=== PATIENT | female | born 1995 | race Two or more races ===

== ENCOUNTER 2018-04-15 06:32 | Inpatient (IN) | payer BC, OTHER ==
[2018-04-15 07:22] LABS: APPEARANCE,URINE CLEAR; BILIRUBIN,URINE NEGATIVE (NEGATIVE); COLOR,URINE STRAW; GLUCOSE, URINE NEGATIVE (NEGATIVE); KETONES,URINE NEGATIVE (NEGATIVE); LEUKOCYTE ESTERASE,URINE NEGATIVE (NEGATIVE); NITRITE,URINE NEGATIVE (NEGATIVE); PROTEIN,URINE NEGATIVE (NEGATIVE); URINE SPECIFIC GRAVITY 1.008; UROBILINOGEN,URINE NEGATIVE mg/dL (<2.0)
[2018-04-15 07:45] LABS: URINE AMPHETAMINES SCREEN NEGATIVE; URINE BARBITURATES SCREEN NEGATIVE; URINE BENZODIAZEPINES SCREEN NEGATIVE; URINE COCAINE SCREEN NEGATIVE; URINE MARIJUANA (THC) SCREEN NEGATIVE; URINE METHADONE SCREEN NEGATIVE; URINE PHENCYCLIDINE SCREEN NEGATIVE
[2018-04-15] MEDS ORDERED: DINOPROSTONE 10 MG VAGINAL INSERT.SR PV PRN (07:53)
[2018-04-15] MEDS ORDERED: OXYTOCIN/NORMAL SALINE 20 UNIT/1,000 ML RTUINJ IV PRN ×3 (07:53→20:11)
[2018-04-15] MEDS ORDERED: RINGERS SOLUTION,LACTATED 300 ML IV ONE (07:53)
--- NOTE | 2018-04-15 08:09 | Admission Physical ---
Datetime Report Generated by CPN: 04/15/2018 08:08 CURRENT ADMISSION Chief Complaint: Suspected Ruptured Membranes Indication for Induction: PROM Admit Impression : Term, Intrauterine ; Ruptured Membranes; Induction of Labor Admit Plan: Admit to Unit; Initiate Labor Induction Protocol ALLERGIES Medication Allergies: No Medication Allergies: No Known Allergies (04/15/2018) Latex: No Latex Allergies OBSTETRICAL HISTORY EDC: 04/30/2018 00:00 : 1 Para: 0 Term: 0 : 0 SAB: 0 IAB: 0 Ectopic: 0 Livin Cesareans: 0 VBACs: 0 Multiple Births: 0 Gestational Diabetes: No Rh Sensitization: No Incompetent Cervix: No CARLENE: No Infertility: No ART Treatment: No Uterine Anomaly: No IUGR: No Hx Previous C/S: No Macrosomia: No Hx Loss/Stillborn: No PIH: No Hx : No Placenta Previa/Abruption: No Depression/PP Depression: No PTL/PROM: No Post Hemorrhage: No Current Procedures: Ultrasound SEE RECORDS Alcohol: No Marijuana : No Cocaine: No Other Illicit Drugs: No Cigarettes: Never Smoker. [id number] MEDICAL HISTORY Diabetes: No Blood Transfusion: No Pulmonary Disease (Asthma, TB): No Breast Disease: No Hypertension: No [place] Surgery: No Heart Disease: No Hosp/Surgery: No Autoimmune Disorder: No Anesthetic Complications: No Kidney Disease: No Abnormal Pap Smear: No Neuro/Epilepsy: No Psychiatric Disorders: No Other Medical Diseases: No Hepatitis/Liver Disease: No Significant Family History: No Varicosities/Phlebitis: No Trauma/Violence : No Thyroid Dysfunction: No INFECTIOUS HISTORY Gonorrhea: No Genital Herpes: No Chlamydia: No Tuberculosis: No Syphilis: No Hepatitis: No HIV/AIDS Exposure: No Rash or Viral Illness: No HPV: No PHYSICAL EXAM General: Normal HEENT: Normal Neurologic: Normal Thyroid: Normal Heart: Normal Lungs: Normal Breast: Normal Back: Normal Abdomen: Normal Genitourinary Exam: Normal Extremities: Normal DTRs: Normal Pelvic Type: Adequate Vital Signs: Reviewed VAGINAL EXAM Dilatation: 1 Effacement: 0 Station: 0 MEMBRANES Pooling: Positive Membranes: Ruptured Amniotic Fluid Color: Clear FETUS A EGA: 37.6 Monitoring: External US FHR- Baseline: 130 Variability: Moderate 6-25bpm Accelerations: 15X15 Decelerations: None FHR Category: Category I Estimated Weight (gm): 3500 Presentation: Vertex PLANS FOR LABOR AND DELIVERY Labor and Delivery: None Pain Management: Epidural Feeding Preference: Both Benefit of Breast Feed Discussed: Yes Circumcision: N/A INFORMED CONSENT Signature: with User ID: [email or web address]
[2018-04-15] MEDS ORDERED: OXYTOCIN/NORMAL SALINE 20 UNIT/1,000 ML RTUINJ ONE ×2 (08:21→18:35)
[2018-04-15] MEDS ORDERED: PROMETHAZINE HCL INJ 25 MG/1 ML VIAL ONE (11:56)
[2018-04-15] MEDS ORDERED: NALBUPHINE HCL INJ 10 MG/1 ML AMPULE ONE (11:56)
[2018-04-15] MEDS ORDERED: NALBUPHINE HCL INJ 10 MG/1 ML AMPULE IV ONE (12:30)
[2018-04-15] MEDS ORDERED: PROMETHAZINE HCL INJ 25 MG/1 ML VIAL IV ONE (12:30)
[2018-04-15] MEDS: RINGERS SOLUTION,LACTATED 1,000 ML IV PRN ×3 (13:37→16:26)
[2018-04-15] MEDS ORDERED: BUPIVACAINE HCL 0.5 % INJ/PF 30 ML SDV ONE (15:31)
[2018-04-15] MEDS ORDERED: EPHEDRINE SULFATE INJ 50 MG/1 ML AMPULE ONE (15:31)
[2018-04-15] MEDS ORDERED: FENTANYL/BUPIVACAINE/NS/PF 300 MCG/150 ML RTUINJ EPI ONE (15:31)
[2018-04-15 15:34] LABS: ABSOLUTE LYMPHOCYTES (AUTO) 1.9 10^3/uL (0.5-4.7); ABSOLUTE MONOCYTES (AUTO) 0.7 10^3/uL (0.1-1.4); ABSOLUTE NEUT (AUTO) 6.2 10^3/uL (1.7-8.2); BASOPHILS % (AUTO) 0.3 % (0-2); EOSINOPHILS % (AUTO) 0.4 % (0-6); HEMATOCRIT 36.7 % (36.0-47.0); HEMOGLOBIN 13.4 g/dL (12.0-15.5); LYMPHOCYTES % (AUTO) 21.5 % (13-45); MEAN CORPUSCULAR HEMOGLOBIN 32.6 pg (27.0-33.4); MEAN CORPUSCULAR HGB CONC 36.5 g/dL (32.0-36.0); MEAN CORPUSCULAR VOLUME 89 fl (80-97); MONOCYTES % (AUTO) 7.4 % (3-13); PLATELET COUNT 154 10^3/uL (150-450); RED BLOOD COUNT 4.11 10^6/uL (3.72-5.28); RED CELL DISTRIBUTION WIDTH 13.1 % (11.5-14.0); SEGMENTED NEUTROPHILS % (AUTO) 70.4 % (42-78); TOTAL CELLS COUNTED % (AUTO) 100 %; WHITE BLOOD COUNT 8.9 10^3/uL (4.0-10.5)
[2018-04-15] MEDS ORDERED: LIDOCAINE 1% INJ-PF (10 MG/ML) 30 ML SDV ONE (16:35)
[2018-04-15] MEDS ORDERED: MISOPROSTOL 0.2 MG TABLET ONE (16:35)
[2018-04-15] MEDS ORDERED: PSEUDOEPHEDRINE HCL 30 MG TABLET PO PRN (20:11)
[2018-04-15] MEDS ORDERED: ACETAMINOPHEN 650 MG SUPP.RECT PR PRN (20:11)
[2018-04-15] MEDS ORDERED: PROMETHAZINE HCL 25 MG SUPP.RECT PR PRN (20:11)
[2018-04-15] MEDS ORDERED: DIBUCAINE 1% OINTMENT 28 GM TP PRN (20:11)
[2018-04-15] MEDS ORDERED: MAGNESIUM HYDROXIDE SUSP 30 ML UDCUP PO PRN (20:11)
[2018-04-15] MEDS ORDERED: DIPH/PERTUSS(ACELL)/TETANUS VAC/PF 0.5 ML SYR (>=10YO) IM PRN (20:11)
[2018-04-15] MEDS ORDERED: PROMETHAZINE HCL INJ 25 MG/1 ML VIAL IV PRN (20:11)
[2018-04-15] MEDS ORDERED: BENZOCAINE/MENTHOL AEROSOL SPRAY 56 ML TOP PRN (20:11)
[2018-04-15] MEDS ORDERED: ACETAMINOPHEN WITH CODEINE #3 TABLET PO PRN ×2 (20:11)
[2018-04-15] MEDS ORDERED: GLYCERIN/WITCH HAZEL LEAF 1 EACH MED..PAD TP PRN (20:11)
[2018-04-15] MEDS ORDERED: ZOLPIDEM TARTRATE 5 MG TABLET PO PRN (20:11)
[2018-04-15] MEDS ORDERED: NA PHOS,M-B/NA PHOS,DI-BA (ADULT) 133 ML ENEMA PR PRN (20:11)
[2018-04-15] MEDS ORDERED: MEASLES,MUMPS&RUBELLA VACC/PF 0.5 ML VIAL SUBCUT PRN (20:11)
[2018-04-15] MEDS ORDERED: PROMETHAZINE HCL 25 MG TABLET PO PRN (20:11)
[2018-04-15] MEDS ORDERED: DIPHENHYDRAMINE HCL 25 MG CAPSULE PO PRN (20:11)
--- NOTE | 2018-04-15 21:25 | Delivery Summary ---
Del Sum A-C Datetime Report Generated by CPN: 04/15/2018 21:25 DELIVERY PERSONNEL DELIVERY PERSONNEL: [id number] Delivery Doctor:: Marta Hummel MD Labor and Delivery Nurse:: Alessandra Amaro RNvamp creaser Nurse:: Cynthia Mahoney RN Nursery Nurse:: Juana Smith RN Nursery Nurse:: Cassie Mota RN Merchandiser Seasonal/DOCUMENT MANAGEMENT ANALYST: Gerardo Lopez CNA Additional Personnel: : Maria Elena Bedoya RN MATERNAL INFORMATION Delivery Anesthesia: Epidural Medications During Delivery: Nubain, Phenergan Medications After Delivery: Pitocin Bolus-Please Comment Meds After Delivery Comment: Pitocin 20mu in 1000 LR Estimated Blood Loss (ml): 150 Maternal Complications: None LABOR SUMMARY EDC: 04/30/2018 00:00 No. Babies in Womb: 1 Attempted: No Labor Anesthesia: Epidural LABOR INFORMATION Reason for Induction: Not Applicable Onset of Labor: 04/15/2018 11:51 Complete Dilatation: 04/15/2018 19:10 Oxytocin: Augmentation Group B Beta Strep: NEGATIVE Antibiotics # of Doses: na Antibiotics Time of Last Dose: na Name of Antibiotic Given: na Steroids Given: None Reason Steroids Not Administered: Not Applicable MEMBRANES Membranes Rupture Method: Spontaneous Rupture of Membranes: 04/15/2018 06:00 Length of Rupture (hr): 13.92 Amniotic Fluid Color: Clear Amniotic Fluid Amount: Moderate Amniotic Fluid Odor: Normal STAGES OF LABOR Stage 1 hr: 7 Stage 1 min: 19 Stage 2 hr: 0 Stage 2 min: 45 Stage 3 hr: 0 Stage 3 min: 4 Total Time in Labor hr: 8 Total Time in Labor min: 8 VAGINAL DELIVERY Episiotomy: None Laceration #1: Perineal Laceration Extension #1: First Degree Laceration #2: None Laceration Extension #2: N/A Laceration #3: None Laceration Extension #3: N/A Laceration Repair: Yes Laceration Repair Note: repaired with 30 chromic suture Initial Vag Sponge Count: 0 Final Vag Sponge Count: 0 Initial Vag Sharps Count: 0 Final Vag Sharps Count: 0 Sponge Count Correct: Vaginal Sweep Performed Sharps Count Correct: Yes CSECTION DELIVERY Primary Indication: N/A Secondary Indication: N/A CSection Incidence: N/A Labor: N/A Elective: N/A CSection Incision: N/A BABY A INFORMATION Delivery Date/Time: 04/15/2018 19:55 Method of Delivery: Vaginal Born in Route : No : N/A Forceps: N/A Vacuum Extraction: N/A Shoulder Dystocia : No PRESENTATION/POSITION BABY A Presentation: Cephalic Cephalic Presentation: Vertex Vertex Position: Left Occipital Anterior Breech Presentation: N/A PLACENTA INFORMATION BABY A Placenta Delivery Time : 04/15/2018 19:59 Placenta Method of Delivery: Spontaneous Placenta Status: Delivered SCORES BABY A Heart Rate 1 min: >100 bpm Resp Effort 1 min: Slow, Irregular Reflex Irritability 1 min: Grimace Muscle Tone 1 min: Some Flexion of Extremities Color 1 min: Blue/Pale Resuscitation Effort 1 min: Tactile Stimulation SCORE 1 MIN: 5 Heart Rate 5 min: >100 bpm Resp Effort 5 min: Good Cry Reflex Irritability 5 min: Cough or Sneeze or Pulls Away Muscle Tone 5 min: Active Motion Color 5 min: Body [place], Extremities Blue Resuscitation Effort 5 min: Tactile Stimulation SCORE 5 MIN: 9 INFORMATION BABY A Gestational Age at Delivery: 37.6 Gestational Status: Early Term- 37- 38.6 Weeks Infant Outcome : Liveborn Condition : Stable Infant Sex: Female IDENTIFICATION BABY A Verification Date/Time: 04/15/2018 19:55 ID Band Number: [id number] Mother's Name Verified: Yes Infant RN Verifying : A. Misyak, RN Additional Verifying Personnel: R. Shaneel, DOCUMENT MANAGEMENT ANALYST WEIGHT/LENGTH BABY A Infant Birthweight (gm): 3460 Weight (lb): 7 Weight (oz): 10 Infant Length (in): 19.00 Length (cm): 48.26 CORD INFORMATION BABY A No. Cord Vessels: 3 Nuchal Cord : N/A Suction: Mouth; Nose ASSESSMENT BABY A Complications: None Physical Findings at Delivery: Within Normal Limits Respirations: Appears Normal Skin to Skin: Yes Skin to Skin Time (min): 90 Die Lay Out Worker/ALS Called : No Care By: MSteve Mahoney RN Transferred To: Remains with Mother BABY B INFORMATION : N/A SIGNATURES Signature: with User ID: [email or web address]
[2018-04-15] MEDS: FAMOTIDINE 20 MG TABLET PO SCH (22:56)
[2018-04-15] MEDS: IBUPROFEN 800 MG TABLET PO SCH (22:56)
[2018-04-16] MEDS: IBUPROFEN 800 MG TABLET PO SCH ×3 (06:47→21:41)
[2018-04-16 06:49] LABS: HEMATOCRIT 32.8 % (36.0-47.0); HEMOGLOBIN 11.9 g/dL (12.0-15.5); MEAN CORPUSCULAR HEMOGLOBIN 32.4 pg (27.0-33.4); MEAN CORPUSCULAR HGB CONC 36.4 g/dL (32.0-36.0); MEAN CORPUSCULAR VOLUME 89 fl (80-97); PLATELET COUNT 143 10^3/uL (150-450); RED BLOOD COUNT 3.69 10^6/uL (3.72-5.28); RED CELL DISTRIBUTION WIDTH 13.4 % (11.5-14.0); WHITE BLOOD COUNT 9.6 10^3/uL (4.0-10.5)
[2018-04-16] MEDS: DOCUSATE SODIUM 100 MG CAPSULE PO SCH ×2 (09:46→17:48)
[2018-04-16] MEDS: FERROUS SULFATE 325 MG TABLET PO SCH ×2 (09:46→17:48)
[2018-04-16] MEDS: FAMOTIDINE 20 MG TABLET PO SCH ×2 (09:46→21:41)
[2018-04-16] MEDS: SENNOSIDES/DOCUSATE 8.6-50 MG 1 EACH TABLET PO SCH (09:46)
[2018-04-16] MEDS: PRENATAL VITAMIN W DHA CAPSULE PO SCH (09:46)
--- NOTE | 2018-04-16 12:51 | PDOC PROGRESS REPORT ---
Subjective-OB Progress Note for:: 04/16/18 Physical Exam (OB) Vital Signs: Temp Pulse Resp BP Pulse Ox 97.8 F 75 18 101/50 L 100 04/16/18 07:37 04/16/18 07:37 04/16/18 07:37 04/16/18 07:37 04/16/18 07:37 Intake & Output 04/15/18 04/16/18 04/17/18 06:59 06:59 06:59 Intake Total 352 Balance 352 Weight 84.1 kg - PIH/Pre-Eclampsia Clonus: Negative Headache: Absent Epigastric Pain: No Visual Changes: No - Lochia Lochia Amount: Small 10-25 ml Lochia Color: Rubra/Red - Abdomen Description: Soft Hernia Present: No Bowel Sounds: Normoactive Flatus Presence: Absent Stool: No Fundal Description: Firm, Midline Fundal Height: u/u - u/2 Objective-Diagnostic Laboratory: 04/16/18 06:26 04/15/18 04/15/18 04/16/18 15:09 15:09 06:26 WBC 8.9 9.6 RBC 4.11 3.69 L Hgb 13.4 11.9 L Hct 36.7 32.8 L MCV 89 89 MCH 32.6 32.4 MCHC 36.5 H 36.4 H RDW 13.1 13.4 Plt Count 154 143 L Seg Neutrophils % 70.4 Lymphocytes % 21.5 Monocytes % 7.4 Eosinophils % 0.4 Basophils % 0.3 Absolute Neutrophils 6.2 Absolute Lymphocytes 1.9 Absolute Monocytes 0.7 Absolute Eosinophils 0.0 Absolute Basophils 0.0 Blood Type A POSITIVE Antibody Screen NEGATIVE
[2018-04-17 01:02] VITALS: BP 115/58
[2018-04-17] MEDS: IBUPROFEN 800 MG TABLET PO SCH (06:22)
[2018-04-17] MEDS: DOCUSATE SODIUM 100 MG CAPSULE PO SCH (10:17)
[2018-04-17] MEDS: PRENATAL VITAMIN W DHA CAPSULE PO SCH (10:17)
[2018-04-17] MEDS: FAMOTIDINE 20 MG TABLET PO SCH (10:17)
[2018-04-17] MEDS: FERROUS SULFATE 325 MG TABLET PO SCH (10:17)
[2018-04-17] MEDS: SENNOSIDES/DOCUSATE 8.6-50 MG 1 EACH TABLET PO SCH (10:17)
--- NOTE | 2018-04-17 10:27 | PDOC DISCHARGE SUMMARY ---
Final Diagnosis Discharge Date: 04/17/18 - PP Day #2, doing well, no complaints, A+ rubella immune, - Final Diagnosis (1) Delivery normal Is this a current diagnosis for this admission?: Yes (2) Encounter for induction of labor Is this a current diagnosis for this admission?: Yes (3) Is this a current diagnosis for this admission?: Yes (4) Premature rupture of membranes Is this a current diagnosis for this admission?: Yes Discharge Data - Discharge Medication Prescriptions: Ibuprofen [Motrin 800 mg Tablet] 800 mg PO Q8 #60 tablet Home Medications: Vit No.129/Iron/Folic [ One Daily Tablet] 1 each PO DAILY 04/15 Ibuprofen [Motrin 800 mg Tablet] 800 mg PO Q8 #60 tablet 04/17/18 Reason(s) for Admission: Onset of Labor Procedures: Ultrasound Complication(s): Laceration-Perineal Laceration-Degree: 1st - Diagnosis Test Laboratory: Temp Pulse Resp BP Pulse Ox 98.0 F 75 18 115/58 L 99 04/17/18 00:01 04/17/18 00:01 04/16/18 07:37 04/17/18 00:01 04/17/18 00:01 04/15/18 04/15/18 04/16/18 06:40 15:09 06:26 RBC 4.11 3.69 L Hgb 13.4 11.9 L Hct 36.7 32.8 L Urine Opiates Screen NEGATIVE - Discharge information/Instructions Discharge Activity: Activity As Tolerated, No Lifting Over 10 Pounds, Pelvic Rest Discharge Diet: As Tolerated, Regular Disposition: HOME, SELF-CARE Follow up with: [facility] in: 4, Weeks
== END 2018-04-17 12:55 | disposition home or self-care (01) | DRG 807 ==
LOC: LC 06:32 → LR 07:51 → 2S 22:22
PROVIDERS: ADMIT Obstetrics & Gynecology; ATTEND Obstetrics & Gynecology
PROC: 10E0XZZ Delivery of Products of Conception, External Approach (ICD-10-PCS; principal; 2018-04-15)
PROC: 0HQ9XZZ Repair Perineum Skin, External Approach (ICD-10-PCS; 2018-04-15)
DX: O70.0 First degree perineal laceration during delivery (principal); Z37.0 Single live birth; O42.92 Full-term premature rupture of membranes, unspecified as to length of time between rupture and onset of labor; Z3A.37 37 weeks gestation of pregnancy
CPT/HCPCS: 36415; 80307; 81005; 84112; 85025; 85027; 86592; 86850; 86900; 86901; 94760; 99465; J2300; J2550; J2590; J3010; J3490